=== PATIENT | female | born 1940 | race Caucasian/White ===

== ENCOUNTER 2022-03-23 15:25 | Outpatient (CLI) | payer MEDICARE, BC, SELFPAY ==
--- NOTE | 2022-03-23 15:15 | RT.EKG_ITS ---
APPROVED REPORT Exam: Resting ECG Reason for Exam: Chest Discomfort Patient Location: O HR:81 bpm ECG Measurements Heart Rate 81 AXIS WV 156 P 44 QRSd 81 QRS 4 QT 393 T 59 QTc 456 Conclusion Sinus rhythm...normal P axis, V-rate 60- 99 Normal Electrocardiogram
== END 2022-03-23 15:26 | disposition home or self-care (01) ==
LOC: DI.CM 15:26
PROVIDERS: PCP Family Medicine; Visit Provider Family Medicine
DX: R07.89 Other chest pain (principal)
CPT/HCPCS: 93010